=== PATIENT | male | born 2000 | race American Indian/Alaskan Native ===

== ENCOUNTER 2020-11-04 21:44 | Emergency (ER) | payer SELFPAY ==
--- NOTE | 2020-11-05 01:44 | Emergency Department Report ---
ED Abdominal Pain HPI - General Chief Complaint: Abdominal Pain Stated Complaint: CONSTIPATION Source: patient Mode of arrival: Stretcher Limitations: No Limitations - History of Present Illness Initial Comments: 20-year-old cachectic -[place] male presents to the emergency room reporting he has abdominal pain and constipation for 7 days. Patient states that he has a decrease in appetite decrease in bowel movement noticed blood in his toilet and toilet paper. Denies any past medical history currently takes no medications on a daily basis. He denies having a primary care provider. He denies any nausea no vomiting no diarrhea. Denies any chest pain denies any shortness of breath. States his pain is a 2 out of 10. MD Complaint: abdominal pain Onset/Timin -: week(s) Location: suprapubic Radiation: none Severity scale (0 -10): 2 Quality: aching, dull Consistency: intermittent Improves With: nothing Worsens With: nothing Associated Symptoms: constipation, hematochezia. denies: nausea, vomiting, diarrhea, fever - Related Data Previous Rx's Medication Instructions Recorded Last Taken Type Polyethylene Glycol 3350 [Miralax] 17 gm PO QDAY #119 powder 11/05/20 Unknown Rx Allergies Allergy/AdvReac Type Severity Reaction Status Date / Time No Known Allergies Allergy Unverified 11/05/20 00:01 ED Review of Systems ROS: Stated complaint: CONSTIPATION Other details as noted in HPI Comment: All other systems reviewed and negative ED Past Medical Hx - Past Medical History Previous Medical History?: No - Surgical History Past Surgical History?: No - Social History Smoking Status: Never Smoker Substance Use Type: None - Medications Home Medications: Home Medications Medication Instructions Recorded Confirmed Last Taken Type Polyethylene Glycol 3350 [Miralax] 17 gm PO QDAY #119 powder 11/05/20 Unknown Rx ED Physical Exam - General Limitations: No Limitations General appearance: alert, cachectic - Head Head exam: Present: atraumatic, normocephalic, other (Temporal wasting) - Eye Eye exam: Present: other (Dark circles and sunken) - ENT ENT exam: Present: mucous membranes dry - Neck Neck exam: Present: normal inspection, full ROM - Respiratory Respiratory exam: Present: normal lung sounds bilaterally. Absent: respiratory distress, chest wall tenderness - Cardiovascular Cardiovascular Exam: Present: regular rate - GI/Abdominal GI/Abdominal exam: Present: soft, tenderness. Absent: distended, guarding, rebound - Back Exam Back exam: Present: normal inspection, full ROM - Neurological Exam Neurological exam: Present: alert, oriented X3, normal gait - Psychiatric Psychiatric exam: Present: normal affect, normal mood - Skin Skin exam: Present: warm, dry, intact, normal color. Absent: rash ED Course Vital Signs 11/04/20 23:51 Temperature 99.2 F Pulse Rate 63 Respiratory 16 Rate Blood Pressure 107/74 O2 Sat by Pulse 95 Oximetry ED Medical Decision Making - Radiology Data Radiology results: report reviewed [facility] [address] [place] [address] XRay Report Signed Patient: LA OG MR#: [id number] 15 : 2000 Acct:[id number] Age/Sex: 20 / M ADM Date: 11/04/20 Loc: ED Attending Dr: Ordering Physician: SHELBY KEITH Date of Service: 11/05/20 Procedure(s): XR abdomen 2V Accession Number(s): [id number] cc: SHELBY KEITH Fluoro Time In Minutes: ABDOMEN 2 VIEWS INDICATION / CLINICAL INFORMATION: constipation. COMPARISON: None available. FINDINGS: TUBES / LINES: None. BOWEL GAS PATTERN: No significant abnormality. There is a small amount stool in the colon. FREE AIR / EXTRALUMINAL GAS: None seen. ADDITIONAL FINDINGS: No significant additional findings. CHEST: Visualized chest shows no significant abnormality. IMPRESSION: 1. No significant abnormality. Signer Name: Fan Edwards MD Signed: 11/05/2020 1:59 AM Workstation Name: [id number] Transcribed By: Dictated By: Fan Edwards MD Electronically Authenticated By: Fan Edwards MD Signed Date/Time: 11/05/20158 DD/ 7 TD/TT: Print Cancel - Medical Decision Making 20-year-old cachectic -[place] male presents to the emergency room reporting he has abdominal pain and constipation for 7 days. Patient states that he has a decrease in appetite decrease in bowel movement noticed blood in his toilet and toilet paper. Denies any past medical history currently takes no medications on a daily basis. He denies having a primary care provider. He denies any nausea no vomiting no diarrhea. Denies any chest pain denies any shortness of breath. States his pain is a 2 out of 10. CBC CMP lipase urinalysis UDS, Phos, magnesium KUB. Critical care attestation.: If time is entered above; I have spent that time in minutes in the direct care of this critically ill patient, excluding procedure time. ED Disposition Clinical Impression: Mildly underweight adult, Constipation Disposition: DC-01 TO HOME OR SELFCARE Is pt being admited?: No Does the pt Need Aspirin: No Condition: Stable Instructions: Constipation, Adult, [id number], Probiotics Additional Instructions: X-ray shows mild stool in the rectum area. I recommend taking MiraLAX as prescribed. Follow-up with a primary care provider. Prescriptions: Polyethylene Glycol 3350 [Miralax] 17 gm PO QDAY #119 powder Referrals: GILL CARIAS MD [Primary Care Provider] - 3-5 Days
--- NOTE | 2020-11-05 02:03 | XRay Report ---
ABDOMEN 2 VIEWS INDICATION / CLINICAL INFORMATION: constipation. COMPARISON: None available. FINDINGS: TUBES / LINES: None. BOWEL GAS PATTERN: No significant abnormality. There is a small amount stool in the colon. FREE AIR / EXTRALUMINAL GAS: None seen. ADDITIONAL FINDINGS: No significant additional findings. CHEST: Visualized chest shows no significant abnormality. IMPRESSION: 1. No significant abnormality. Signer Name: Fan Edwards MD Signed: 11/05/2020 1:59 AM Workstation Name: [id number]
[2020-11-05 02:27] LABS: Hematocrit 44.8 % (35.5-45.6); Hemoglobin 15.3 gm/dl (11.8-15.2); Mean Corpuscular HGB Conc 34 % (32-34); Mean Corpuscular Volume 93 fl (84-94); Platelet Count 158 K/mm3 (140-440); Red Blood Count 4.82 M/mm3 (3.65-5.03); Red Cell Distribution Width 13.9 % (13.2-15.2)
[2020-11-05 02:29] LABS: Alanine Aminotransferase 29 units/L (7-56); Albumin 3.7 g/dL (3.9-5); BUN/Creatinine Ratio 25; Blood Urea Nitrogen 25 mg/dL (9-20); Calcium 9.8 mg/dL (8.4-10.2); Hemolysis Index 11
[2020-11-05] MEDS ORDERED: SODIUM CHLORIDE 0.9% 1000 ML 1,000 ML IV ONE (03:00)
[2020-11-05 03:59] LABS: Total Cells Counted 100
[2020-11-05 04:00] LABS: Platelet Estimate Consistent w Auto
[2020-11-05 05:36] VITALS: BP 111/63
== END 2020-11-05 05:35 | disposition home or self-care (01) ==
LOC: ED 21:44
DX: K59.00 Constipation, unspecified (principal); R63.6 Underweight; Z79.899 Other long term (current) drug therapy
CPT/HCPCS: 36415; 74019; 80053; 83690; 83735; 84100; 85007; 85025; 96360; 99284; J7030